=== PATIENT | female | born 1970 | race Caucasian/White ===

== ENCOUNTER 2022-10-19 08:03 | Emergency (ER) | payer BC, SELFPAY ==
[2022-10-19 08:12] VITALS: BP 132/87; PULSE 88; RESP 16; TEMP 37.2; O2SAT 100
--- NOTE | 2022-10-19 08:22 | ED.URI ---
HPI - URI/Sore Throat General Chief Complaint: Upper Respiratory Infection Stated Complaint: fever, sore throat Time Seen by Provider: 10/19/22 08:18 Source: patient, RN notes reviewed and old records reviewed Mode of arrival: ambulatory Limitations: no limitations History of Present Illness HPI Narrative: 52-year-old old female who [facility] with 1 day history of sore throat, fevers up to 100F, nasal congestion and drainage, denies any ear pain or cough. Patient has had positive exposure to strep by daughter who recently tested positive to strep. Patient reports that she has been taking Ibuprofen for discomfort and fever. Patient has had COVID vaccinations and also flu shot. MD elicited complaint: fever, sore throat and other (body aches) Onset (ago): day(s) (yesterday) Pain scale (0-10): 4 Able to tolerate fluids by mouth: Yes Exacerbating factors: swallowing Treatments prior to arrival: ibuprofen Related Data Allergies Allergy/AdvReac Type Severity Reaction Status Date / Time pseudoephedrine Allergy Severe HIVES Unverified 10/19/22 08:19 Review of Systems Review of Systems: CONSTITUTIONAL: Reports malaise, chills, sweats, or fever. EYES: Denies visual changes, redness, or discharge. ENT: Reports rhinorrhea, congestion, sinus pain, no otalgia, positive sore throat. CARDIOVASCULAR: Denies chest pain, palpitations, or edema. RESPIRATORY: Reports cough.? Denies dyspnea. GASTROINTESTINAL: Denies abdominal pain, nausea, vomiting, diarrhea SKIN: Denies rash or itching. MUSCULOSKELETAL: Reports myalgia. NEUROLOGIC: Denies headache. All systems reviewed & are unremarkable except as noted in HPI and below PMFSH Past Medical History Medical History (Updated 10/19/22 @ 08:43 by Romana Gil NP) Anxiety Seasonal allergies Surgical History Surgical History (Updated 10/19/22 @ 08:43 by Romana Gil NP) H/O release of tendon right wrist History of cholecystectomy History of lumpectomy of right breast Social History Social History (Updated 10/19/22 @ 08:44 by Romana Gil NP) Smoking status: Never smoker Alcohol intake: current Substance use: never Living arrangements: with family Gender identity (if verbalized by the patient): Female Comments At time of signature, agree with nursing past medical, surgical, social and family history. There is no relevant family history pertinent to the presenting complaint Exam Narrative: GENERAL: Well-appearing, well-nourished, and in no acute distress. HEAD: Normocephalic EYES: PERRLA, conjunctivae clear ENT: Nares clear, turbinates edematous and erythematous, clear discharge. Mucous membranes moist. TM pearly govea with dull light reflex bilaterally; no tragal tenderness. Oropharynx erythematous without lesions. Tonsils red and enlarged and without exudate, no drooling, no hoarseness, no trismus, uvula midline.post nasal drainage NECK: Supple. No lymphadenopathy CHEST: Clear to auscultation, breath sounds equal. No wheezing, rhonchi, rales, or stridor. No respiratory distress, speaks in full sentences.SAO2 100% on room air HEART: Regular rate and rhythm. No murmur heard. SKIN: Warm, dry, no rash. NEURO: Alert and oriented x3. PSYCH: Normal mood and affect Course Course Emergency Course: Patient is aware of diagnosis, understands and agrees to treatment plan.? Anticipatory guidance given.? Patient agrees to follow-up as directed and is aware of reasons to seek care at the emergency department. Portions of this record may have been created with voice recognition software Level of Care: Express Care Visit Vital Signs Vital signs: Vital Signs Temperature 37.2 C 10/19/22 08:12 Pulse Rate 88 10/19/22 08:12 Respiratory Rate 16 10/19/22 08:12 Blood Pressure 132/87 10/19/22 08:12 Pulse Oximetry 100 10/19/22 08:12 Temperature 37.2 C 10/19/22 08:12 Pulse Rate 88 10/19/22 08:12 Resp
== END 2022-10-19 08:39 | disposition home or self-care (01) ==
PROVIDERS: Emergency Provider Registered Nurse
DX: J02.0 Streptococcal pharyngitis (principal)
CPT/HCPCS: 87081; 99203; G0463

== ENCOUNTER 2025-10-24 18:17 | Emergency (ER) | payer BC, SELFPAY ==
--- NOTE | 2025-10-24 18:18 | ED_ITS ---
HPI - Wound/Laceration General Chief Complaint: Wound/Laceration Stated Complaint: Finger laceration Time Seen by Provider: 10/24/25 18:18 Source: patient Mode of arrival: ambulatory Limitations: no limitations History of Present Illness HPI narrative: Deena is a 55-year-old female patient presenting to the clinic today with complaints of a laceration to her middle dorsal finger that just occurred prior to arrival. She reports she was pushing recycling materials down in her recycling bin. Tetanus is UTD-2021. Bleeding is controlled. Related Data Allergies Allergy/AdvReac Type Severity Reaction Status Date / Time pseudoephedrine Allergy Severe HIVES Verified 10/24/25 18:31 Review of Systems Review of Systems: Pertinent positives per HPI. Patient denies any fever, chills, rash, headache, visual changes, dizziness, cough, runny nose, sore throat, shortness of breath, chest pain, palpitations, nausea, vomiting, diarrhea, constipation, abdominal pain, or any urinary issues. PMFSH Past Medical History Medical History Anxiety Seasonal allergies Surgical History Surgical History H/O release of tendon right wrist History of cholecystectomy History of lumpectomy of right breast Social History Social History Smoking status: Never smoker Alcohol intake: current Substance use: never Living arrangements: with family Gender identity (if verbalized by the patient): Female Comments At the time of my signature, I reviewed and agree with the nursing past medical, surgical, social, and family history. There is no relevant family history pertinent to the patient complaint. Exam 2 Narrative: General: Well-developed, well nourished, in no apparent distress Head: Normocephalic, atraumatic. Cardio: Regular rate and rhythm, s1 and s2 normal, no murmur appreciated. Resp: Clear to auscultation bilaterally, no rhonchi, rales, wheezing or rubs. Integumentary: [place], warm, and dry, intact without lesion,1.5 cm flap laceration to the volar aspect of the right 3rd dorsal distal finger Course Course Level of Care: Express Care Visit Procedures Laceration Laceration 1: Date: 10/24/25 Site: hand (Right 3rd finger) Side (If applicable): right Size (cm): 1.5 Description: flap Depth: simple, single layer Local Anesthetic: lidocaine 1% Amount of anesthesia used (mL): 1 Pre-repair: wound explored and irrigated ====== Skin Level ====== Skin layer closed with: nylon Size (cm): 5-0 Number of sutures: 3 Technique: simple, interrupted ====== Subcutaneous Layer ====== ====== Muscle Layer ====== ====== Tendon Layer ====== Dressing: Verbal consent obtained for laceration repair. Risk and benefits explained and patient voiced understanding. Area was cleansed with antiseptic wound wash and a 27 gauge needle was then used to instill (1) ml of 1% lidocaine without epi into the wound edges. Area was prepped and draped using sterile technique. A 5-0 suture on a p needle was used to place (3) interrupted sutures bringing the wound edges together- well approximated. Patient tolerated procedure well. Sterile dressing applied. MDM MDM Narrative Medical decision making narrative: At the time of visit patient is resting comfortably on the exam table. Patient appears to be nontoxic. Complaints of a laceration to her middle dorsal finger that just occurred prior to arrival. She reports she was pushing recycling materials down in her recycling bin. Tetanus is UTD-2. Bleeding is controlled. Procedure: Laceration repair was performed in the clinic today. Three interrupted sutures were placed bringing the wound edges well approximate. Patient tolerated well. Plan: Patient has a 1.5 cm flap laceration to the right dorsal distal phalanx. Three interrupted sutures were placed bringing wound edges well approximate. Patient tolerated well. Supportive measures were discussed with the patient and they voiced understanding discharge instructions and agrees to treatment plan. Return precautions reviewed Differential Diagnosis Differential Diagnosis: Differential diagnostic considerations for wound laceration include laceration, abscess, abrasion, avulsion of skin, skin foreign body. Discharge Plan Discharge Clinical Impression: Finger laceration Qualifiers: Encounter type: initial encounter Finger: middle finger Damage to nail status: without damage Foreign body presence: without foreign body Laterality: right Qualified Code(s): S61.212A - Laceration without foreign body of right middle finger without damage to nail, initial encounter Patient Disposition: Home Condition: Stable Instructions: Antibiotic Form, Finger Laceration (ED) Additional Instructions: Leave bandage on for 24 hours then may remove and apply band aide covering as needed. Keep wound clean and dry May apply triple antibiotic ointment to the wound twice daily for 48 hours then leave open to air Skin sutures out in 7 days. Watch for signs and symptoms of infection- redness, streaking, swelling, purulent discharge, or increase in pain. Follow up with your PCP for suture removal or return to the Express care. Patient Language: Maltese Prescriptions: No Action amoxicillin 500 mg tablet 500 mg PO Q8H Qty: 21 0RF Follow-up/Referrals: PHYSICIAN,CUSTOMER CARE PROFESSIONAL [Primary Care Provider, Internal Medicine] Time of Disposition: 18:44 Quality NIHSS Nursing Documentation ED NIHSS nursing documentation: reviewed/agree
[2025-10-24 18:27] VITALS: BP 149/86; PULSE 91; RESP 16; TEMP 36.1; O2SAT 100
[2025-10-24] MEDS: LIDOCAINE 1% LOCAL INJ 2 ML AMPUL INFILTRATE (18:32)
== END 2025-10-24 18:45 | disposition home or self-care (01) ==
PROVIDERS: Emergency Provider Nurse Practitioner Family
DX: S61.212A Laceration without foreign body of right middle finger without damage to nail, initial encounter (principal); W45.8XXA Other foreign body or object entering through skin, initial encounter
CPT/HCPCS: 12001; 99212; G0463; J2003